=== PATIENT | male | born 1980 | race Caucasian/White ===

== ENCOUNTER 2016-04-17 14:37 | Emergency (ER) | payer MEDICARE, MEDICAID ==
[2016-04-17] MEDS ORDERED: SODIUM CHLORIDE 0.9% 1,000 ML IV ONE ×2 (16:15→17:33)
[2016-04-17] MEDS ORDERED: ONDANSETRON 4 MG/2 ML VIAL IVP STA (16:15)
[2016-04-17] MEDS ORDERED: ONDANSETRON 4 MG/2 ML VIAL ONE (16:28)
[2016-04-17] MEDS ORDERED: INSULIN REGULAR HUMAN 100 UNIT/1 ML 10 ML MDV SUBQ STA (17:33)
[2016-04-17] MEDS ORDERED: INSULIN REGULAR HUMAN 100 UNIT/1 ML 10 ML MDV ONE (17:51)
== END 2016-04-17 20:24 | disposition home or self-care (01) ==
DX: E11.65 Type 2 diabetes mellitus with hyperglycemia (principal); K02.9 Dental caries, unspecified; K04.7 Periapical abscess without sinus; Z79.4 Long term (current) use of insulin; K21.9 Gastro-esophageal reflux disease without esophagitis; F17.200 Nicotine dependence, unspecified, uncomplicated
CPT/HCPCS: 36415; 76705; 80053; 81001; 82009; 82803; 83690; 85025; 96374; 99283; 99285; J1815

== ENCOUNTER 2016-04-22 | Outpatient (CLI) | payer MEDICARE, MEDICAID | END 2016-04-22 23:59 | disposition critical access hospital (66) | DX: R11.2 Nausea with vomiting, unspecified (principal) | CPT/HCPCS: A0425; A0427 ==

== ENCOUNTER 2016-04-22 18:44 | Inpatient (IN) | payer MEDICARE, MEDICAID ==
[2016-04-22] MEDS ORDERED: LIDOCAINE VISCOUS 2% 15 ML UDC MM STA (19:04)
[2016-04-22] MEDS ORDERED: SODIUM CHLORIDE 0.9% 1,000 ML IV ONE ×2 (19:04→19:53)
[2016-04-22] MEDS ORDERED: MAG HYDROX/AL HYDROX/SIMETH 30 ML UDC PO STA (19:04)
[2016-04-22] MEDS ORDERED: ONDANSETRON 4 MG/2 ML VIAL IVP STA (19:04)
[2016-04-22] MEDS ORDERED: ONDANSETRON 4 MG/2 ML VIAL ONE (19:12)
[2016-04-22] MEDS ORDERED: LIDOCAINE VISCOUS 2% 15 ML UDC MM ONE (19:12)
[2016-04-22] MEDS ORDERED: MAG HYDROX/AL HYDROX/SIMETH 30 ML UDC ONE (19:12)
[2016-04-22] MEDS ORDERED: INSULIN REGULAR HUMAN 100 UNIT in SODIUM CHLORIDE 0.9% 100ML 99 ML IV STA (20:33)
[2016-04-22] MEDS ORDERED: INSULIN REGULAR HUMAN 100 UNIT/1 ML 10 ML MDV ONE ×2 (20:37→20:53)
[2016-04-22] MEDS ORDERED: IOPAMIDOL-300 100 ML VIAL IVP ONE (20:45)
[2016-04-22] MEDS ORDERED: NS W/20 MEQ KCL 1,000 ML IV SCH (21:00)
[2016-04-22] MEDS ORDERED: ACETAMINOPHEN 325 MG TABLET PO PRN (22:26)
[2016-04-22] MEDS ORDERED: ONDANSETRON 4 MG/2 ML VIAL IVP PRN (22:26)
[2016-04-22] MEDS ORDERED: SODIUM CHLORIDE FLUSH 0.9% 10 ML SYRINGE IVP PRN (22:26)
[2016-04-22] MEDS: SODIUM CHLORIDE FLUSH 0.9% 10 ML SYRINGE IVP SCH (23:13)
[2016-04-23] MEDS ORDERED: INSULIN REGULAR HUMAN 100 UNIT in SODIUM CHLORIDE 0.9% 100ML 99 ML IV STA ×3 (00:02→04:30)
[2016-04-23] MEDS ORDERED: traZODone 50 MG TABLET PO ONE (00:33)
[2016-04-23] MEDS ORDERED: lamoTRIgine 100 MG TABLET PO ONE (00:35)
[2016-04-23] MEDS ORDERED: POTASSIUM CHLOR 10 MEQ/100 ML 100 ML IV SCH (02:00)
[2016-04-23] MEDS ORDERED: INSULIN GLARGINE 300 UNIT/3 ML PEN SUBQ ONE (06:28)
[2016-04-23] MEDS: SODIUM CHLORIDE FLUSH 0.9% 10 ML SYRINGE IVP SCH ×3 (06:40→21:58)
[2016-04-23] MEDS ORDERED: DEXTROSE 50% ABBOJECT 25 GM/50 ML SYRINGE IVP PRN ×2 (06:48→11:52)
[2016-04-23] MEDS ORDERED: GLUCAGON 1 MG/ML VIAL SUBQ PRN ×2 (06:48→11:52)
[2016-04-23] MEDS ORDERED: DEXTROSE 5% 1,000 ML IV PRN ×2 (06:48→11:52)
[2016-04-23] MEDS ORDERED: DEXTROSE GEL 37.5 GM TUBE PO PRN ×2 (06:48→11:52)
[2016-04-23] MEDS ORDERED: SODIUM CHLORIDE 0.9% 1,000 ML IV SCH (07:00)
[2016-04-23] MEDS ORDERED: PANTOPRAZOLE 40 MG TABLET PO SCH (07:00)
[2016-04-23] MEDS: POTASSIUM CHLOR 10 MEQ/100 ML 100 ML IV SCH ×2 (07:13→09:17)
[2016-04-23] MEDS ORDERED: INSULIN ASPART 300 UNIT/3 ML PEN SUBQ SCH ×2 (08:00→14:00)
[2016-04-23] MEDS ORDERED: HEPARIN 5,000 UNIT/ML VIAL SUBQ SCH (09:00)
[2016-04-23] MEDS ORDERED: lamoTRIgine 100 MG TABLET PO SCH ×3 (09:00→21:00)
[2016-04-23] MEDS ORDERED: SODIUM CHLORIDE FLUSH 0.9% 10 ML SYRINGE IVP PRN (11:52)
[2016-04-23] MEDS ORDERED: ONDANSETRON 4 MG/2 ML VIAL IVP PRN (11:52)
[2016-04-23] MEDS ORDERED: ACETAMINOPHEN 325 MG TABLET PO PRN (11:52)
[2016-04-23] MEDS ORDERED: PENICILLIN VK 250 MG TABLET PO SCH (12:00)
[2016-04-23] MEDS: PENICILLIN VK 250 MG TABLET PO SCH ×3 (12:09→23:55)
[2016-04-23] MEDS: INSULIN ASPART 300 UNIT/3 ML PEN SUBQ SCH ×4 (12:10→21:53)
[2016-04-23] MEDS: SODIUM CHLORIDE 0.9% 1,000 ML IV SCH ×2 (12:10→22:00)
[2016-04-23] MEDS: PANTOPRAZOLE 40 MG TABLET PO SCH (16:44)
[2016-04-23] MEDS ORDERED: traZODone 50 MG TABLET PO SCH ×3 (21:00)
[2016-04-23] MEDS ORDERED: INSULIN GLARGINE 300 UNIT/3 ML PEN SUBQ SCH ×2 (21:00)
[2016-04-23] MEDS: HEPARIN 5,000 UNIT/ML VIAL SUBQ SCH (21:50)
[2016-04-24] MEDS: PENICILLIN VK 250 MG TABLET PO SCH ×2 (07:00→11:47)
[2016-04-24] MEDS: PANTOPRAZOLE 40 MG TABLET PO SCH (07:00)
[2016-04-24] MEDS: SODIUM CHLORIDE FLUSH 0.9% 10 ML SYRINGE IVP SCH (07:01)
[2016-04-24] MEDS ORDERED: POTASSIUM CHLORIDE 20 MEQ TABLET PO STA (08:02)
[2016-04-24] MEDS ORDERED: CALCIUM GLUCONATE 1,000 MG in SODIUM CHLORIDE 0.9% 50 ML IV ONE (08:02)
[2016-04-24] MEDS ORDERED: INSULIN ASPART 300 UNIT/3 ML PEN SUBQ SCH ×2 (08:26→12:00)
[2016-04-24] MEDS: HEPARIN 5,000 UNIT/ML VIAL SUBQ SCH (08:51)
[2016-04-24] MEDS: INSULIN ASPART 300 UNIT/3 ML PEN SUBQ SCH ×2 (08:58→11:47)
[2016-04-24] MEDS ORDERED: NON FORMULARY MED (Atorvastatin Calcium [Atorvastatin Calcium] 20 MG) PO SCH (09:00)
[2016-04-24] MEDS ORDERED: INSU100I18 SUBQ SCH (09:00)
[2016-04-24] MEDS ORDERED: lamoTRIgine 100 MG TABLET PO SCH (09:00)
[2016-04-24] MEDS: SODIUM CHLORIDE 0.9% 1,000 ML IV SCH (09:28)
[2016-04-24] MEDS ORDERED: INSULIN GLARGINE 300 UNIT/3 ML PEN SUBQ SCH (21:00)
== END 2016-04-24 12:30 | disposition home or self-care (01) | DRG 638 ==
DX: E13.10 Other specified diabetes mellitus with ketoacidosis without coma (principal); R10.13 Epigastric pain; J45.909 Unspecified asthma, uncomplicated; E87.1 Hypo-osmolality and hyponatremia; K04.7 Periapical abscess without sinus; F17.200 Nicotine dependence, unspecified, uncomplicated; E78.5 Hyperlipidemia, unspecified; G47.33 Obstructive sleep apnea (adult) (pediatric); F31.9 Bipolar disorder, unspecified; K21.9 Gastro-esophageal reflux disease without esophagitis; E87.6 Hypokalemia; E87.8 Other disorders of electrolyte and fluid balance, not elsewhere classified; E83.51 Hypocalcemia; Z79.84 Long term (current) use of oral hypoglycemic drugs; Z79.899 Other long term (current) drug therapy

== ENCOUNTER 2016-05-22 13:47 | Outpatient (CLI) | payer MEDICARE, MEDICAID | END 2016-05-22 13:48 | disposition home or self-care (01) | DX: G47.33 Obstructive sleep apnea (adult) (pediatric) (principal) | CPT/HCPCS: 99214; G0463 ==

== ENCOUNTER 2016-05-26 19:14 | Emergency (ER) | payer MEDICARE, MEDICAID ==
[2016-05-26] MEDS ORDERED: INSULIN REGULAR HUMAN 100 UNIT/1 ML 10 ML MDV SUBQ STA (20:48)
[2016-05-26] MEDS ORDERED: SODIUM CHLORIDE 0.9% 1,000 ML IV ONE (20:48)
[2016-05-26] MEDS ORDERED: INSULIN REGULAR HUMAN 100 UNIT/1 ML 10 ML MDV IVP STA (20:48)
[2016-05-26] MEDS ORDERED: INSULIN REGULAR HUMAN 100 UNIT/1 ML 10 ML MDV ONE ×2 (21:11→21:56)
== END 2016-05-26 23:10 | disposition home or self-care (01) ==
DX: E11.65 Type 2 diabetes mellitus with hyperglycemia (principal); Z79.4 Long term (current) use of insulin
CPT/HCPCS: 36415; 80053; 82009; 82803; 83690; 85025; 96360; 99283; 99284; J1815

== ENCOUNTER 2016-06-19 16:32 | Emergency (ER) | payer MEDICARE, MEDICAID ==
[2016-06-19] MEDS ORDERED: SODIUM CHLORIDE 0.9% 1,000 ML IV ONE (16:42)
[2016-06-19] MEDS: SODIUM CHLORIDE 0.9% 1,000 ML IV ONE (17:06)
[2016-06-19] MEDS ORDERED: INSULIN REGULAR HUMAN 100 UNIT/1 ML 10 ML MDV ONE (17:28)
[2016-06-19] MEDS: INSULIN REGULAR HUMAN 100 UNIT/1 ML 10 ML MDV SUBQ STA (17:32)
[2016-06-19] MEDS: INSULIN REGULAR HUMAN 100 UNIT/1 ML 10 ML MDV IVP STA (17:33)
== END 2016-06-19 18:59 | disposition home or self-care (01) ==
DX: E11.65 Type 2 diabetes mellitus with hyperglycemia (principal); Z79.4 Long term (current) use of insulin; J06.9 Acute upper respiratory infection, unspecified; B97.89 Other viral agents as the cause of diseases classified elsewhere
CPT/HCPCS: 36415; 71020; 80053; 82009; 82803; 83690; 85025; 99283; 99284; J1815

== ENCOUNTER 2017-01-29 10:51 | Outpatient (CLI) | payer MEDICARE, MEDICAID | END 2017-01-29 10:52 | disposition home or self-care (01) | LOC: SC 10:51 | PROVIDERS: ATTEND Internal Medicine Pulmonary Disease | DX: G47.33 Obstructive sleep apnea (adult) (pediatric) (principal) | CPT/HCPCS: 99213; G0463; 99212 ==

== ENCOUNTER 2017-05-27 21:58 | Outpatient (CLI) | payer MEDICARE, MEDICAID | END 2017-05-27 21:59 | disposition EMS.NT | LOC: EMS 21:58 | PROVIDERS: ATTEND Surgery | DX: R42 Dizziness and giddiness (principal) ==

== ENCOUNTER 2017-08-24 11:32 | Outpatient (CLI) | payer MEDICARE, MEDICAID ==
[2017-08-24 12:07] LABS: BASOPHILS % (AUTO) 0.5 %; EOSINOPHILS # (AUTO) 0.5 10^3/uL (0.0-0.7); EOSINOPHILS % (AUTO) 5.6 %; HGB - HEMOGLOBIN 17.6 g/dL (14.0-18.0); LYMPHOCYTES % (AUTO) 22.3 %; MEAN CORPUSCULAR HEMOGLOBIN 30.3 pg (27.0-31.0); MEAN CORPUSCULAR HGB CONC 34.4 g/dL (32.0-36.0); MEAN PLATELET VOLUME 7.6 fL (7.4-11.4); MONOCYTES # (AUTO) 0.7 10^3/uL (0.0-1.0); MONOCYTES % (AUTO) 7.5 %; NEUTROPHILS # (AUTO) 5.7 10^3/uL (1.5-6.6); NEUTROPHILS % (AUTO) 64.1 %; PLT - PLATELET COUNT 270 10^3/uL (130-450); RED CELL DISTRIBUTION WIDTH 13.8 % (12.0-15.0)
[2017-08-24 12:34] LABS: ALBUMIN 4.3 g/dL (3.2-5.5); ALBUMIN/GLOBULIN RATIO 1.3 (1.0-2.2); ALKALINE PHOSPHATASE 96 IU/L (42-121); ALT ALANINE AMINOTRANSFERASE 31 IU/L (10-60); AST ASPARTATE AMINOTRANSFERASE 17 IU/L (10-42); BILIRUBIN,TOTAL 0.9 mg/dL (0.2-1.0); BUN - BLOOD UREA NITROGEN 9 mg/dL (6-20); CARBON DIOXIDE - CO2 23 mmol/L (21-32); CHLORIDE 99 mmol/L (101-111); CHOL/HDL RATIO 5.4 (<5.0); CHOLESTEROL 166 mg/dL; CREATININE 0.8 mg/dL (0.6-1.2); GFR - MDRD 110 (>89); GLUCOSE 347 mg/dL (70-100); HDL CHOLESTEROL 31 mg/dL; LDL CHOLESTEROL,CALCULATED 70 mg/dL; LDL/HDL RATIO 2.3 (<3.6); SODIUM 133 mmol/L (135-145); TOTAL PROTEIN 7.6 g/dL (6.7-8.2); VLDL CHOLESTEROL 65 mg/dL
[2017-08-24 13:00] LABS: HB2 TOTAL 19.8 g/dL; HEMOGLOBIN A1C 2.31 g/dL; HEMOGLOBIN A1C % 12.8 % (4.6-6.2)
== END 2017-08-24 11:33 | disposition home or self-care (01) ==
LOC: LAB 11:32
PROVIDERS: ATTEND Family Medicine
DX: E78.5 Hyperlipidemia, unspecified (principal); E11.9 Type 2 diabetes mellitus without complications
CPT/HCPCS: 36415; 80053; 80061; 82043; 82570; 83036; 83721; 85025

== ENCOUNTER 2018-01-24 14:41 | Outpatient (CLI) | payer MEDICARE, MEDICAID | END 2018-01-24 14:42 | disposition critical access hospital (66) | LOC: EMS 14:41 | PROVIDERS: ATTEND Surgery | DX: R68.83 Chills (without fever) (principal); R05 Cough; R61 Generalized hyperhidrosis | CPT/HCPCS: A0425; A0429 ==

== ENCOUNTER 2018-01-24 14:48 | Emergency (ER) | payer MEDICARE, MEDICAID ==
[2018-01-24 15:02] VITALS: BP 146/86
[2018-01-24] MEDS ORDERED: BENZONATATE 100 MG CAPSULE PO STA (16:11)
[2018-01-24] MEDS ORDERED: IBUPROFEN 400 MG TABLET PO STA (16:11)
[2018-01-24] MEDS ORDERED: guaiFENesin/DEXTROMETHORPHAN 10 ML UDC PO STA (16:11)
--- NOTE | 2018-01-24 16:14 | ED Physician Documentation ---
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 no GI sx Review of Systems Constitutional: reports: Chills, Myalgias Nose: reports: Congestion Respiratory: reports: Cough GI: denies: Vomiting, Diarrhea Endocrine: denies: Easy bruising / bleeding Immunocompromised: denies: Immunocompromised PD PAST MEDICAL HISTORY - Past Medical History Cardiovascular: None Respiratory: Asthma, Pneumonia Endocrine/Autoimmune: Type 2 diabetes GI: GERD : None, Frequency HEENT: None Psych: Bipolar disorder Musculoskeletal: None Derm: None - Past Surgical History Past Surgical History: No - Present Medications Home Medications: Ambulatory Orders Medication Instructions Recorded Confirmed Omeprazole 40 mg PO DAILY 05/21/13 05/26/16 lamoTRIgine [LaMICtal] 100 mg PO DAILY 05/21/13 05/26/16 traZODone [Desyrel] 100 mg PO QPM 04/22/16 05/26/16 Atorvastatin Calcium 20 mg PO DAILY 04/23/16 05/26/16 Blood Sugar Diagnostic [Glucometer 1 each ACHS 30 Days strip 04/24/16 05/26/16 Strips] Blood-Glucose Meter [Glucometer] 1 each ACHS 99 Days each 04/24/16 05/26/16 Insulin Aspart [NovoLOG] 5 unit SUBQ TIDWM #1 pen 04/24/16 05/26/16 Insulin Aspart [Novolog Flexpen] 100 unit SQ TIDWM #1 insuln.pen 04/24/16 05/26/16 Insulin Glargine [Lantus Solostar] 25 unit SUBQ QPM #1 pen 04/24/16 05/26/16 [place], Disposable [Easy Touch 1 each 5XD 30 Days dis.needle 04/24/16 05/26/16 Hypodermic Needle] Albuterol Sulfate [Proair Hfa 2 puffs INH Q4H PRN #1 inhaler 01/24/18 Inhaler] Benzonatate [Tessalon] 100 mg PO TID PRN #20 capsule 01/24/18 Fluticasone [Flonase] 1 sprays TEENA BID PRN #1 bottle 01/24/18 Ibuprofen [Motrin] 400 mg PO Q6H PRN #20 tablet 01/24/18 guaiFENesin/DEXTROMETHORPHAN 10 ml PO Q6H PRN #120 ml 01/24/18 [Robitussin Dm] - Allergies Allergies/Adverse Reactions: Allergies Allergy/AdvReac Type Severity Reaction Status Date / Time hydromorphone HCl * AdvReac Severe anaphylactic Verified 01/24/18 14:58 [From Dilaudid] shock morphine AdvReac Intermediate anaphylactic Verified 01/24/18 14:58 shock onion Allergy Severe Respiratory Uncoded 01/24/18 14:58 peppers Allergy Severe Respiratory Uncoded 01/24/18 14:58 any narcotics AdvReac Severe anaphylactic Uncoded 01/24/18 14:58 shock - Social History Does the pt smoke?: No Smoking Status: Never smoker Does the pt drink ETOH?: No Does the pt have substance abuse?: Yes - Immunizations Immunizations are current?: Yes - POLST Patient has POLST: No PD ED PE NORMAL - Vitals Vital signs reviewed: Yes - General General: Alert and oriented X 3 - HEENT HEENT: PERRL, Moist mucous membranes. No: Pharynx benign (mild erythema from cough) - Neck Neck: Supple, no meningeal sign - Cardiac Cardiac: RRR - Respiratory Respiratory: No respiratory distress, Clear bilaterally, Other (but decreased and pt coughs with insp) - Neuro Neuro: Alert and oriented X 3 Eye Opening: Spontaneous Motor: Obeys Commands Verbal: Oriented GCS Score: 15 Results - Vitals Vitals: Vital Signs - 24 hr 01/24/18 14:52 Temperature 36.2 C L Heart Rate 95 Respiratory 15 Rate Blood Pressure 146/86 H O2 Saturation 96 Oxygen O2 Source Room air - Labs Labs: Laboratory Tests 01/24/18 15:10 Influenza A (Rapid) Negative Influenza B (Rapid) Negative - Rads (name of study) CXR Radiology: See rad report (neg) Departure - Departure Disposition: 01 Home, Self Care Clinical Impression: Bronchitis Condition: Good Instructions: ED Upper Resp Infec No Abx Tx Follow-Up: Efraín Gagnon MD [Primary Care Provider] - Prescriptions: Albuterol Sulfate [Proair Hfa Inhaler] 2 puffs INH Q4H PRN #1 inhaler PRN Reason: Shortness Of Air/Wheezing Benzonatate [Tessalon] 100 mg PO TID PRN #20 capsule PRN Reason: to ease cough Fluticasone [Flonase] 1 sprays TEENA BID PRN #1 bottle PRN Reason: allergies guaiFENesin/DEXTROMETHORPHAN [Robitussin Dm] 10 ml PO Q6H PRN #120 ml PRN Reason: Cough Ibuprofen [Motrin] 400 mg PO Q6H PRN #20 tablet PRN Reason: Pain Comments: The flu swabs were negative The chest xray did not show pneumonia. This is likely a viral illness That does not make you any less ill but means antibiotics are unlikely to help I have prescribed medications to ease your symptoms that you can take as needed And written you a note for work so you can rest and recover Forms: Activity restrictions
--- NOTE | 2018-01-24 16:44 | XRAY Report ---
Reason: cough soa Procedure Date: 01/24/2018 Accession Number: [id number] / [id number] Procedure: XR - Chest 2 View X-Ray CPT Code: 94223 FULL RESULT: EXAM: CHEST RADIOGRAPHY EXAM DATE: 01/24/2018 04:30 PM. CLINICAL HISTORY: Shortness of breath and cough for 2 days. COMPARISON: CHEST 2 VIEW PA/LAT 06/19/2016 6:07 PM. TECHNIQUE: 2 views. FINDINGS: Lungs/Pleura: No focal opacities evident. No pleural effusion. No pneumothorax. Normal volumes. Mediastinum: Heart and mediastinal contours are unremarkable. Other: None. IMPRESSION: Normal 2-view chest radiography. RADIA
== END 2018-01-24 17:15 | disposition home or self-care (01) ==
LOC: ED 14:48
DX: J40 Bronchitis, not specified as acute or chronic (principal); E11.9 Type 2 diabetes mellitus without complications; Z79.4 Long term (current) use of insulin
CPT/HCPCS: 71046; 87275; 87276; 99283; A9270

== ENCOUNTER 2018-01-28 13:20 | Outpatient (CLI) | payer MEDICARE, MEDICAID | END 2018-01-28 13:21 | disposition home or self-care (01) | LOC: SC 13:20 | PROVIDERS: ATTEND Internal Medicine Pulmonary Disease | DX: G47.33 Obstructive sleep apnea (adult) (pediatric) (principal) | CPT/HCPCS: 99213; G0463; 99212 ==

== ENCOUNTER 2018-04-23 14:10 | Outpatient (CLI) | payer MEDICARE, MEDICAID | END 2018-04-23 14:11 | disposition home or self-care (01) | LOC: SC 14:10 | PROVIDERS: ATTEND Nurse Practitioner Family | DX: G47.33 Obstructive sleep apnea (adult) (pediatric) (principal); G47.00 Insomnia, unspecified | CPT/HCPCS: 99214; G0463; 99212 ==

== ENCOUNTER 2019-08-23 10:29 | Emergency (ER) | payer MEDICARE, MEDICAID ==
--- NOTE | 2019-08-23 13:24 | ED Physician Documentation ---
History of Present Illness - Stated complaint Stated Complaint: L LEG PX - Chief complaint Chief Complaint: Ext Problem - History obtained from History obtained from: Patient - History of Present Illness Timing: Today Pain level max: 5 Pain level now: 4 - Additonal information Additional information: 38-year-old male was hiking his today when she slipped and fell, he tried to catch her and states that he feels like he pulled a muscle in his left lower leg. Hurts along the anterior aspect of the lundy. Worse with walking, better with rest. Review of Systems Musculoskeletal: denies: Neck pain, Back pain Neurologic: denies: Headache PD PAST MEDICAL HISTORY - Past Medical History Cardiovascular: None Respiratory: Asthma, Pneumonia Endocrine/Autoimmune: Type 2 diabetes GI: GERD : None, Frequency HEENT: None Psych: Bipolar disorder Musculoskeletal: None Derm: None - Past Surgical History Past Surgical History: No - Present Medications Home Medications: Ambulatory Orders Medication Instructions Recorded Confirmed Omeprazole 40 mg PO DAILY 05/21/13 05/26/16 lamoTRIgine [LaMICtal] 100 mg PO DAILY 05/21/13 05/26/16 traZODone [Desyrel] 100 mg PO QPM 04/22/16 05/26/16 Atorvastatin Calcium 20 mg PO DAILY 04/23/16 05/26/16 Blood Sugar Diagnostic [Glucometer 1 each ACHS 30 Days strip 04/24/16 05/26/16 Strips] Blood-Glucose Meter [Glucometer] 1 each ACHS 99 Days each 04/24/16 05/26/16 Insulin Aspart [NovoLOG] 5 unit SUBQ TIDWM #1 pen 04/24/16 05/26/16 Insulin Aspart [Novolog Flexpen] 100 unit SQ TIDWM #1 insuln.pen 04/24/16 05/26/16 Insulin Glargine [Lantus Solostar] 25 unit SUBQ QPM #1 pen 04/24/16 05/26/16 [place], Disposable [Easy Touch 1 each 5XD 30 Days dis.needle 04/24/16 05/26/16 Hypodermic Needle] Albuterol Sulfate [Proair Hfa 2 puffs INH Q4H PRN #1 inhaler 01/24/18 Inhaler] Benzonatate [Tessalon] 100 mg PO TID PRN #20 capsule 01/24/18 Fluticasone [Flonase] 1 sprays TEENA BID PRN #1 bottle 01/24/18 Ibuprofen [Motrin] 400 mg PO Q6H PRN #20 tablet 01/24/18 guaiFENesin/DEXTROMETHORPHAN 10 ml PO Q6H PRN #120 ml 01/24/18 [Robitussin Dm] Benzonatate [Tessalon [place]] 100 - 200 mg PO TID PRN #30 capsule 06/12/19 Cetirizine HCl/Pseudoephedrine 1 each PO BID PRN #30 tab.er.12h 06/12/19 [Zyrtec-D Tablet] - Allergies Allergies/Adverse Reactions: Allergies Allergy/AdvReac Type Severity Reaction Status Date / Time hydromorphone HCl * AdvReac Severe anaphylactic Verified 06/12/19 09:20 [From Dilaudid] shock morphine AdvReac Intermediate anaphylactic Verified 06/12/19 09:20 shock onion Allergy Severe Respiratory Uncoded 01/24/18 14:58 peppers Allergy Severe Respiratory Uncoded 01/24/18 14:58 any narcotics AdvReac Severe anaphylactic Uncoded 01/24/18 14:58 shock - Social History Does the pt smoke?: No Smoking Status: Never smoker Does the pt drink ETOH?: No Does the pt have substance abuse?: Yes - Immunizations Immunizations are current?: Yes - POLST Patient has POLST: No PD ED PE NORMAL - Vitals Vital signs reviewed: Yes - General General: Alert and oriented X 3, No acute distress, Well developed/nourished - HEENT HEENT: Moist mucous membranes - Derm Derm: Warm and dry - Extremities Extremities: No deformity, Other (No bony tenderness along the entire left lower extremity including the ankle, foot, tibia, fibula, knee, hip and thigh. There is no other tenderness to palpation either. There is pain with dorsiflexion of the foot along the tibialis anterior. Neurovascular intact) - Neuro Neuro: Alert and oriented X 3 - Psych Psych: Normal mood, Normal affect Results - Vitals Vitals: Vital Signs - 24 hr 08/23/19 10:37 Temperature 36.8 C Heart Rate 96 Respiratory 18 Rate Blood Pressure 148/98 H O2 Saturation 99 Oxygen O2 Source Room air PD MEDICAL DECISION MAKING - ED course Complexity details: considered differential, d/w patient ED course: Patient with a left tibialis anterior strain. No evidence of fractures. Darren bandage applied. Ambulating well. No evidence of compartment syndrome. Patient counseled regarding signs and symptoms for which I believe and urgent re- evaluation would be necessary. Patient with good understanding of and agreement to plan and is comfortable going home at this time This document was made in part using voice recognition software. While efforts are made to proofread this document, sound alike and grammatical errors may occur. Departure - Departure Disposition: 01 Home, Self Care Clinical Impression: Strain of left tibialis anterior muscle Qualifiers: Encounter type: initial encounter Qualified Code(s): S86.812A - Strain of other muscle(s) and tendon(s) at lower leg level, left leg, initial encounter Condition: Good Instructions: ED Strain Muscle Ext Follow-Up: Your,doctor in 1 week [Other] Comments: This should improve over the next week or 2. You can use the Darren wrap as needed for compression. Return if you worsen. You can use Tylenol or Motrin as needed for pain.
[2019-08-23 13:33] VITALS: BP 155/89
== END 2019-08-23 13:34 | disposition home or self-care (01) ==
LOC: ED 10:29
DX: S86.812A Strain of other muscle(s) and tendon(s) at lower leg level, left leg, initial encounter (principal); X50.9XXA Other and unspecified overexertion or strenuous movements or postures, initial encounter; Y93.01 Activity, walking, marching and hiking; Y92.828 Other wilderness area as the place of occurrence of the external cause; E11.9 Type 2 diabetes mellitus without complications; Z79.4 Long term (current) use of insulin
CPT/HCPCS: 99281; 99282